=== PATIENT | female | born 1975 | race American Indian/Alaskan Native ===

== ENCOUNTER 2018-03-03 11:25 | Emergency (ER) | payer BC ==
[2018-03-03 11:26] VITALS: BMI 31.8
[2018-03-03 11:35] VITALS: RESP 18
[2018-03-03] MEDS ORDERED: Sodium Chloride 0.9% 2,000 ML IV STA (11:57)
--- NOTE | 2018-03-03 12:05 | ED PDOC ---
Arrival/HPI - General Chief Complaint: Headache Time Seen by Provider: 03/03/18 11:47 Historian: Patient - History of Present Illness Narrative History of Present Illness (Text): 03/03/18 11:56 A 42 year old female, whose past medical history includes headache, migraine, and mengioma, presents to the emergency department complaining of right-sided migraine. Patient states taking medications at home for symptom, but has had no relief. Patient reports last visiting neurologist for CT scan was 2 months ago. Denies any other symptoms at this time. Also, patient wants Dr. Palmer contacted before given any medications. Past Medical History - Provider Review Nursing Documentation Reviewed: Yes - Past Medical History Past Medical History: No Previous - Cardiac Hx Hypertension: Yes - Neurological Hx Migraine: Yes - Psychiatric Hx Depression: No Hx Emotional Abuse: No Hx Physical Abuse: No Hx Substance Use: No - Surgical History Hx Hysterectomy: Yes Hx Tubal Ligation: Yes - Suicidal Assessment Feels Threatened In Home Enviroment: No Family/Social History - Physician Review Nursing Documentation Reviewed: Yes Family/Social History: No Known Family HX Smoking Status: Never Smoked Hx Alcohol Use: No Hx Substance Use: No Hx Substance Use Treatment: No Allergies/Home Meds Allergies/Adverse Reactions: Allergies No Known Allergies Allergy (Verified 03/03/18 11:35) Home Medications: Home Meds Medication Instructions Recorded Confirmed Ergocalciferol (Vitamin D2) 50,000 units PO QWK 03/03/18 03/03/18 [Vitamin D2] amLODIPine [Norvasc] 10 mg PO DAILY 03/03/18 03/03/18 Review of Systems - Physician Review All systems were reviewed & negative as marked: Yes - Review of Systems Eyes: absent: Vision Changes Cardiovascular: Chest Pain Gastrointestinal: Abdominal Pain, Nausea, Vomiting Neurological: Headache (migraine). absent: Dizziness Physical Exam Vital Signs Reviewed: Yes Vital Signs Temp Pulse Resp BP Pulse Ox 03/03/18 13:27 56 L 18 145/81 98 03/03/18 11:31 98.5 F 63 18 154/110 H 100 03/03/18 11:26 98.5 F 63 18 154/110 H 100 Temperature: Afebrile Blood Pressure: Hypertensive Pulse: Regular Respiratory Rate: Normal Appearance: Positive for: Well-Appearing Pain Distress: None Mental Status: Positive for: Alert and Oriented X 3 - Systems Exam Head: Present: Atraumatic, Normocephalic Pupils: Present: PERRL Extroacular Muscles: Present: EOMI Conjunctiva: Present: Normal Mouth: Present: Moist Mucous Membranes Neck: Present: Normal Range of Motion Respiratory/Chest: Present: Clear to Auscultation, Good Air Exchange. No: Respiratory Distress, Accessory Muscle Use Cardiovascular: Present: Regular Rate and Rhythm, Normal S1, S2. No: Murmurs Abdomen: No: Tenderness, Distention, Peritoneal Signs Back: Present: Normal Inspection Upper Extremity: Present: Normal Inspection. No: Cyanosis, Edema Lower Extremity: Present: Normal Inspection. No: Edema Neurological: Present: GCS=15, CN II-XII Intact, Speech Normal Skin: Present: Warm, Dry, Normal Color. No: Rashes Psychiatric: Present: Alert, Oriented x 3, Normal Insight, Normal Concentration Medical Decision Making ED Course and Treatment: 03/03/18 11:59 Impression: 42 year old female with migraine. No acute findings on physical exam. Plan: -- Reglan -- IV Fluids -- Reassess and disposition Progress Notes: 03/03/18 13:54 On re-evaluation, patient feels better and is in no acute distress. I have discussed the results and plan with the patient, who expresses understanding. Patient in agreement with plan to be discharged home. Patient is stable for discharge. Patient was instructed to follow up with physician or return if symptoms worsen or new concerning symptoms arise. - Medication Orders Current Medication Orders: Sodium Chloride (Sodium Chloride 0.9%) 2,000 mls @ 999 mls/hr IV .Q2H1M STA Stop: 03/03/18 13:57 Last Admin: 03/03/18 12:13 Dose: 999 mls/hr eMAR Start Stop Document 03/03/18 12:13 SRE (Rec: 03/03/18 12:14 SRE [id number]) Intravenous Solution Start Date 03/03/18 Start Time 12:13 End Date 03/03/18 End time 14:00 Total Infusion Time 107 Discontinued Medications Metoclopramide HCl (Reglan) 10 mg IVP STAT STA Stop: 03/03/18 12:00 Last Admin: 03/03/18 12:16 Dose: 10 mg IVP Administration Document 03/03/18 12:16 SRE (Rec: 03/03/18 12:16 SRE [id number]) Charges for Administration # of IVP Administrations 0 Sumatriptan Succinate (Imitrex Inj) 6 mg SC STAT STA Stop: 03/03/18 12:23 Last Admin: 03/03/18 12:39 Dose: 6 mg Subcutaneous Administrations Document 03/03/18 12:39 SRE (Rec: 03/03/18 12:40 SRE [id number]) Injection Site MAR Injection Site Left Deltoid Charges for Administration # of Subcutaneous Administrations 1 - Scribe Statement The provider has reviewed the documentation as recorded by the Junie Anderson Provider Scribe Attestation: All medical record entries made by the Scribe were at my direction and personally dictated by me. I have reviewed the chart and agree that the record accurately reflects my personal performance of the history, physical exam, medical decision making, and the department course for this patient. I have also personally directed, reviewed, and agree with the discharge instructions and disposition. Disposition/Present on Arrival - Present on Arrival Any Indicators Present on Arrival: No History of DVT/PE: No History of Uncontrolled Diabetes: No Urinary Catheter: No History of Decub. Ulcer: No History Surgical Site Infection Following: None - Disposition Have Diagnosis and Disposition been Completed?: Yes Diagnosis: Migraine headache Disposition: HOME/ ROUTINE Disposition Time: 13:53 Patient Plan: Discharge Patient Problems: Current Active Problems Problem Status Onset Migraine headache Acute Condition: GOOD Discharge Instructions (ExitCare): Migraine Headache (DC) Additional Instructions: Mrs Luan Capellan- Sorry this hurt so badly. Glad we were able to help. Follow up with Dr. Palmer. Return to us if any problems. Best- Dr. John Gamboa Forms: [employer] (Thai)
[2018-03-03 13:28] VITALS: O2SAT 98
[2018-03-03 14:24] VITALS: PULSE 68; TEMP 97.9
[2018-03-03 14:25] VITALS: BP 150/84
== END 2018-03-03 14:24 | disposition home or self-care (01) ==
LOC: ED 11:25
DX: G43.909 Migraine, unspecified, not intractable, without status migrainosus (principal); I10 Essential (primary) hypertension
CPT/HCPCS: 96360; 96361; 96372; 99285; J2765; J3030; J7030